=== PATIENT | female | born 1975 | race Caucasian/White ===

== ENCOUNTER 2017-02-04 22:59 | Inpatient (IN) | payer OTHER ==
[~2017-02-04] VITALS: Ht 165.1 cm; Wt 81.6 kg
--- NOTE | ~2017-02-04 | PN ---
Unit #: [id number] #: [id number] Patient: GALA CRUZ [id number] [facility] [address] [place] [address] [id number] MR#: [id number] NAME: GALA CRUZ ROOM: [facility] Age: 41 Sex: F Admission Date: 02/05/2017 : 1975 Attending Physician: Mj Brown M.D. Admitting Physician: Mj Brown M.D. Primary Care Physician: Primary Care Physician Patricia BURNHAM PROGRESS NOTES DATE 02/06/2017 DISCUSSION Ms. Gala Cruz is a 41-year-old female seen on 02/06/2017. Patient interviewed. Chart reviewed. Obtained information from nursing staff. Patient continues to report feeling sad, depressed, anxious. Patient's thought process continues to be guarded, paranoid, mood lability. Patient reports making some progress but still having symptoms of paranoia. Complete review of system unremarkable. MENTAL STATUS EXAMINATION General appearance, patient dressed casually. Attention span, concentration fair. Oriented in time, place and person. Mood and affect labile. Speech disorganized. Thought process circumstantial. Patient denied any thoughts of harming self or others but guarded, paranoid, mood lability. Recent and remote memory poor. Insight and judgement poor. DIAGNOSES 1. Psychosis NOS. 2. Mood disorder NOS. ASSESSMENT/PLAN Advised to continue with current medication and therapeutic protocol. If needed, consider further adjustment of medication. Dictated by... Rosa Copeland/claudia TD: 02/06/2017 23:06 JOB #: [id number] Unit #: [id number] #: [id number] Patient: GALA CRUZ PROGRESS NOTES Page 1 of 1 X Mj Brown MD X PROGRESS NOTE
--- NOTE | ~2017-02-04 | HP ---
Unit #: [id number] #: [id number] Patient: GALA FRANCO [id number] [place] [address] [id number] I MR#: [id number] NAME: GALA FRANCO ROOM: [facility] Age: 41 Sex: F Admission Date: 02/05/2017 : 1975 Attending Physician: Mj Brown M.D. Admitting Physician: Mj Brown M.D. Primary Care Physician: Primary Care Physician No HISTORY AND PHYSICAL HISTORY OF PRESENT ILLNESS Gala is a 41 year old admitted to [facility] with depression and verbalizing wanting to hurt herself. PAST MEDICAL HISTORY 1. Seizure disorder. 2. Obesity. PAST SURGICAL HISTORY 1. x3. 2. Tubal ligation. ALLERGIES Dilantin. SOCIAL HISTORY He smokes 1 pack per day. Drinks alcohol rarely. Admits to using marijuana on occasion. FAMILY HISTORY Medically noncontributory. REVIEW OF SYSTEMS CONSTITUTIONAL: No fever or chills. HEENT: Denies any sore throat, ear pain or runny nose. CARDIOVASCULAR: Denies chest pain, irregular heart rhythm or palpitations. CHEST: Denies shortness of breath or cough. No hemoptysis. GASTROINTESTINAL: Denies nausea, vomiting, diarrhea or chronic constipation. ENDOCRINE: Denies history of increased thirst or urination. No recent significant weight loss or gain. GENITOURINARY: Denies dysuria, frequency, or hematuria. SKIN: Denies any rashes. HEMATOLOGIC: Denies history of increased bleeding or bruising. MUSCULOSKELETAL: Denies any hot, swollen joints. No generalized muscle pain. NEUROLOGIC: Denies problems with vision or speech. No frequent, severe headaches. No numbness, tingling or weakness in any extremities. Denies loss of bladder or bowel control. CURRENT MEDICATIONS 1. Zyprexa 10 mg b.i.d. 2. Keppra 500 mg b.i.d. Unit #: [id number] #: [id number] Patient: GALA FRANCO 3. Milk of Magnesia p.r.n. 4. Maalox p.r.n. 5. Tylenol p.r.n. PHYSICAL EXAMINATION GENERAL: Alert, well-nourished, in no apparent distress. VITAL SIGNS: Blood pressure 150/96, heart rate 78, respirations 16, temperature 98.6. WEIGHT: 180. HEIGHT: 5 feet 5 inches. SKIN: Warm and dry without rash or lesion. HEENT: Normocephalic. TMs not viewed. Oral and nasal passages clear. Conjunctivae clear. PERRLA. EOMs intact. NECK: Supple without lymphadenopathy or thyromegaly. HEART: Regular rate and rhythm without murmur. LUNGS: Clear. ABDOMEN: Soft, nontender. : Not done. EXTREMITIES: No evidence of cyanosis, clubbing or edema. Moves all without focal deficit. NEUROLOGICAL: Grossly within normal limits. Cranial Nerves: II: Visual ramos are intact. III, IV AND : Extraocular movements are intact. Pupils are equal, round and reactive to light. V: Facial sensation is grossly normal. VII: Facial movements and expression are normal. VIII: Auditory acuity grossly intact. IX, X: Uvula is midline. Phonation is normal. XI: Patient shrugs shoulders and turns head normally. XII: Tongue protrudes in the midline. Sensory and Motor Function: Sensory and motor sensation is grossly normal. Motor: moves all extremities well. Coordination: Gait is normal. Deep Tendon Reflexes: Intact. IMPRESSION Psychiatric admission. RECOMMENDATIONS PSYCHIATRIC: Per psychiatrist. MEDICAL: See no contraindication to participate in facility's activities. MEDICAL PROGNOSIS Good. MEDICAL CONDITION Stable. Dictated by... Valery Solo P.A.-C. for Rosa Varela/claudia TD: 02/05/2017 21:12 JOB #: [id number] Unit #: [id number] #: [id number] Patient: GALA FRANCO HISTORY AND PHYSICAL Page 1 of 1 X Valery Solo HISTORY AND PHYSICAL
--- NOTE | ~2017-02-04 | PN ---
Unit #: [id number] #: [id number] Patient: GALA CRUZ [id number] [facility] [address] [place] [address] [id number] I MR#: [id number] NAME: GALA CRUZ ROOM: [facility] Age: 41 Sex: F Admission Date: 02/05/2017 : 1975 Attending Physician: Mj Brown M.D. Admitting Physician: Mj Brown M.D. Primary Care Physician: Primary Care Physician Patricia BURNHAM PROGRESS NOTES DATE OF SERVICE 02/07/2017 DISCUSSION Gala Cruz is a 41-year-old female seen on 02/07/2017. Patient interviewed, chart reviewed. Obtained information from nursing staff. Patient compliant and cooperative. Mood sad, dysphoric. Flat affect, guarded. The patient still having somewhat disorganized thought process, guarded, paranoid. Vital signs stable 98.4, 66, 20, 117/79. Patient still isolative, guarded. Complete review of systems unremarkable. MENTAL STATUS EXAMINATION General appearance, patient dressed casually. Attention span and concentration fair. Oriented to time, place and person. Mood and affect sad, depressed, flat, isolative. Recent and remote memory poor. Insight and judgement poor. DIAGNOSES 1. Psychosis NOS. 2. Mood disorder NOS. 3. Bipolar mood disorder NOS. ASSESSMENT/PLAN Advise to continue with current combination of medication Zyprexa 10 mg b.i.d., Keppra. If needed consider further adjustment of medication. The patient was taken off from Prozac. We will monitor closely for any increase in depression. Dictated by... Rosa Copeland/feliberto TD: 02/09/2017 03:24 JOB #: [id number] Unit #: [id number] #: [id number] Patient: GALA CRUZ PROGRESS NOTES Page 1 of 1 X Mj Brown MD PROGRESS NOTE
--- NOTE | ~2017-02-04 | PN ---
Unit #: [id number] #: [id number] Patient: ROSAURA FRANCO [id number] [facility] [address] [place] [address] [id number] MR#: [id number] NAME: ROSAURA FRANCO ROOM: [facility] Age: 41 Sex: F Admission Date: 02/05/2017 : 1975 Attending Physician: Mj Brown M.D. Admitting Physician: Mj Brown M.D. Primary Care Physician: Primary Care Physician Patricia BURNHAM PROGRESS NOTES DATE OF SERVICE 02/08/2017 DISCUSSION Ms. Cedeño is a 41-year-old female seen on 02/08/2017. Patient interviewed, chart reviewed. Obtained information from nursing staff. Patient's vital signs 97.9, 63, 20, 117/62. No side effects from medication. Patient impulsive, withdrawn, isolative, guarded, disorganized, thought process. Complete review of systems unremarkable. MENTAL STATUS EXAMINATION General appearance, patient dressed casually. Attention span and concentration poor. Oriented to place and person. Mood and affect labile. Speech circumstantial. Thought process guarded, paranoid but denied any thoughts of harming self or others. Recent and remote memory poor. Insight and judgement poor. DIAGNOSES 1. Psychosis NOS. 2. Mood disorder NOS. 3. Rule out bipolar mood disorder. ASSESSMENT/PLAN Advise to continue with current medication and therapeutic protocol. If needed consider further adjustment of medication. Dictated by... Rosa Copeland/feliberto TD: 02/10/2017 04:23 JOB #: [id number] Unit #: [id number] #: [id number] Patient: ROSAURA FRANCO PEAR[place]ERT PROGRESS NOTES Page 1 of 1 X Mj Brown MD PROGRESS NOTE
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
--- NOTE | ~2017-02-04 | PN ---
Unit #: [id number] #: [id number] Patient: GALA CRUZ [id number] [facility] [address] [place] [address] [id number] I MR#: [id number] NAME: GALA CRUZ ROOM: [facility] Age: 41 Sex: F Admission Date: 02/05/2017 : 1975 Attending Physician: Mj Brown M.D. Admitting Physician: Mj Brown M.D. Primary Care Physician: Primary Care Physician Patricia BURNHAM PROGRESS NOTES DATE OF SERVICE 02/09/2017 DISCUSSION Ms. Gala Cruz is a 41-year-old female seen on 02/09/2017. The patient interviewed, chart reviewed. Obtained information from nursing staff. The patient tolerating medication fairly well. The patient's vital signs stable, 98.1, 77, 16, 120/78. The patient still isolative, guarded, flat affect, disorganized thought process. Guarded, paranoid, but overall cooperative, making progress. Complete Review of Systems: Unremarkable. MENTAL STATUS EXAMINATION General Appearance: The patient dressed casually. Attention span, concentration: Fair. Oriented in time, place, and person. Mood and affect labile. Speech: Monotone. Thought process: [place]. The patient denied any thoughts of harming self or others but guarded, paranoid, mood lability. Withdrawn, isolative. Recent and remote memory: Poor. Insight and judgment: Poor. DIAGNOSES 1. Psychosis not otherwise specified. 2. Bipolar mood disorder not otherwise specified. ASSESSMENT/PLAN Advised to continue with current medication and therapeutic protocol. If needed, consider further adjustment of medication. The patient is currently on Vistaril, Zyprexa, and p.r.n. trazodone for anxiety. Dictated by... Rosa Copeland/karen TD: 02/10/2017 10:25 JOB #: [id number] Unit #: [id number] #: [id number] Patient: GALA CRUZ PROGRESS NOTES Page 1 of 1 X Mj Brown MD PROGRESS NOTE
--- NOTE | ~2017-02-04 | DS ---
Unit #: [id number] #: [id number] Patient: ROSAURA FRANCO [id number] [facility] [address] [place] [address] [id number] MR#: [id number] NAME: ROSAURA FRANCO ROOM: [facility] Age: 41 Sex: F Admission Date: 02/05/2017 : 1975 Discharge Date: 02/11/2017 Attending Physician: Mj Brown M.D. Primary Care Physician: Primary Care Physician No DISCHARGE SUMMARY REASON FOR ADMISSION Psychosis. DIAGNOSTIC STUDIES Laboratory data, unremarkable. HOSPITAL COURSE The patient was admitted to inpatient unit on February 05, 2017 and discharged on 02/11/2017. The patient was treated on the inpatient unit with group therapy, individual therapy, medication management. The patient was responsive to treatment and showed improvement. She was discharged with plan to follow up in outpatient program. DISCHARGE DIAGNOSES Psychiatric: [place] I Bipolar mood disorder, NOS, F31.9. [place] II Deferred. [place] III History of epilepsy. [place] IV Psychosocial stressors. [place] V INSTRUCTIONS TO PATIENT The patient is to follow up in outpatient clinic as well as psychiatric social worker supervisor. DISCHARGE MEDICATIONS 1. Keppra 500 mg twice daily for seizures 2. Zyprexa 10 mg twice daily for psychosis 3. Vistaril 25 mg three times daily for anxiety CONDITION AT DISCHARGE The patient is pleasant, cooperative, denied any psychotic symptoms, or any suicidal ideation. PROGNOSIS Guarded. DIET AND ACTIVITY As tolerated. Unit #: [id number] #: [id number] Patient: ROSAURA FRANCO Dictated by... Rosa Copeland/breezy TD: 02/13/2017 07:21 JOB #: [id number] DISCHARGE SUMMARY Page 1 of 1 X Mj Brown MD X DISCHARGE SUMMARY
--- NOTE | ~2017-02-04 | PN ---
Unit #: [id number] #: [id number] Patient: GALA CRUZ [id number] [facility] [address] [place] [address] [id number] MR#: [id number] NAME: GALA CRUZ ROOM: [facility] Age: 41 Sex: F Admission Date: 02/05/2017 : 1975 Attending Physician: Mj Brown M.D. Admitting Physician: Mj Brown M.D. Primary Care Physician: Primary Care Physician Patricia BURNHAM PROGRESS NOTES DATE 02/10/2017 DISCUSSION Ms. Gala Cruz is a 41-year-old female, seen on 02/10/2017. The patient interviewed, chart reviewed, and obtained information from the nursing staff. The patient was able to carry on a coherent conversation, pleasant, cooperative, tolerating medication fairly well, overall having a good day. REVIEW OF SYSTEMS Complete review of systems unremarkable. MENTAL STATUS EXAMINATION General appearance: Patient dressed casually. Attention span and concentration, fair. Oriented in time, place, and person. Mood and affect, labile. Speech, monotone. Thought process, concrete. The patient denied any thoughts of harming self or others. Recent and remote memory, poor. Insight and judgment, poor. DIAGNOSES 1. Bipolar mood disorder, NOS. 2. Psychosis, NOS. ASSESSMENT/PLAN Advised to continue with the current medication and therapeutic protocol, if needed consider further adjustment of medication. Dictated by... Rosa Copeland/breezy TD: 02/11/2017 07:09 JOB #: [id number] Unit #: [id number] #: [id number] Patient: GALA CRUZ PROGRESS NOTES Page 1 of 1 X Mj Brown MD PROGRESS NOTE
[2017-02-05 09:56] LABS: BASOPHIL% 0.4 % (0-2.5); EOSINOPHIL# 0.1 X10e3 (0-0.7); EOSINOPHIL% 0.8 % (0.0-7.0); HEMATOCRIT 40.7 % (35.0-45.0); HEMOGLOBIN 13.4 gm/dL (12.0-16.0); LYMPHOCYTE# 2.8 X10e3 (1.0-3.5); LYMPHOCYTE% 27.5 % (17.0-45.0); MEAN CELL VOLUME 87.2 FL (83-96); MEAN CORPUSCULAR HEMOGLOBIN 28.8 PG (28-34); MEAN PLATELET VOLUME 7.3 FL (6.5-11.5); MONOCYTE# 0.8 X10e3 (0-1.0); MONOCYTE% 7.9 % (3.0-12.0); NEUTROPHIL# 6.5 X10e3 (1.5-7.1); NEUTROPHIL% 63.4 % (40-75); PLATELET COUNT 414 X10e3 (140-420); RED BLOOD COUNT 4.66 X10e (3.90-5.30); RED CELL DISTRIBUTION WIDTH 14.8 % (11.0-15.5); WHITE BLOOD COUNT 10.3 X10e3 (4.0-10.5)
[2017-02-05 10:08] LABS: DIFF IND NO
[2017-02-05 10:38] LABS: ALBUMIN SERUM 4.3 g/dL (3.5-5.0); BILIRUBIN,TOTAL 0.6 mg/dL (0.2-2.0); CALCIUM SERUM 9.5 mg/dL (8.4-10.2); CREATININE SERUM 0.8 mg/dL (0.6-1.4); PROTEIN TOTAL SERUM 7.1 g/dL (6.0-8.3)
== END 2017-02-11 10:45 | disposition home or self-care (01) | DRG 885 ==
LOC: P1E 02-05 01:21 → P1S 02-06 18:42
PROVIDERS: Psychiatry & Neurology Psychiatry
DX: F31.9 Bipolar disorder, unspecified (principal); G40.909 Epilepsy, unspecified, not intractable, without status epilepticus; F29 Unspecified psychosis not due to a substance or known physiological condition
CPT/HCPCS: 80053; 84703; 85025